=== PATIENT | female | born 1985 | race Caucasian/White ===

== ENCOUNTER 2019-08-16 09:01 | Emergency (ER) | payer OTHER, SELFPAY ==
[2019-08-16 09:24] VITALS: BP 132/88; PULSE 111; RESP 20; TEMP 37.7; O2SAT 98
--- NOTE | 2019-08-16 09:36 | ED.GENADULT ---
HPI - General Adult General Stated complaint: Flu like symptoms Time Seen by Provider: 08/16/19 09:36 Source: patient and RN notes reviewed Mode of arrival: ambulatory Limitations: no limitations History of Present Illness HPI narrative: This patient had onset of a fever last night with a maximum up to 101.4 which was brought down with Tylenol. She is also had a cough that is nonproductive. She has had a clear nasal drainage. She is not had any ear pain or drainage from the ears. She has had no rashes. There is been no nausea, no vomiting, no diarrhea. She has had no hematuria, no dysuria, no pyuria. She has not been traveling. She has had no known exposure to anyone with strep throat, mono, influenza, bronchitis, pneumonia that they are aware of. Related Data Home Medications Medication Instructions Recorded Confirmed albuterol sulfate 2 inh INHALATION QID PRN 06/27/19 06/27/19 fluticasone propion-salmeterol INHALATION 06/27/19 [Advair Diskus] Allergies Allergy/AdvReac Type Severity Reaction Status Date / Time No Known Allergies Allergy Verified 06/27/19 16:48 Review of Systems Review of Systems: Narrative: CONSTITUTIONAL: Denies fever, chills, or sweats. Noncontributory except as pertains to the past medical history and the history of present illness. EYES: Denies visual changes, redness, or discharge. ENT: Denies rhinorrhea, congestion, sore throat, or otalgia. CARDIOVASCULAR: Denies chest pain, palpitations, or edema. RESPIRATORY: Denies cough or dyspnea. GASTROINTESTINAL: Denies abdominal pain, nausea, vomiting, or diarrhea. GENITOURINARY: Denies dysuria or hematuria. SKIN: Denies rash or itching. MUSCULOSKELETAL: Denies back pain, joint pain, or myalgia. NEUROLOGIC: Denies headache, numbness, or weakness. PSYCHIATRIC: Denies anxiety or depression. [facility] Past Medical History Medical History (Updated 08/16/19 @ 10:01 by Joseph Ferro MD) Asthma Surgical History Surgical History (Updated 06/30/19 @ 20:06 by Jahaira Mesa NP) History of cholecystectomy Social History Social History (Updated 06/30/19 @ 20:07 by Jahaira Mesa NP) Smoking status: Never smoker Additional occupation/education comments: [employer] Gender identity (if verbalized by the patient): Female Comments At time of signature, I have reviewed and agree with nursing past medical, surgical, social, and family history.Please see nursing chart for further information. There is no relevant family history pertinent to the presenting complaint. Exam Narrative: Exam Narrative: GENERAL: Well-appearing, well-nourished, and in no acute distress. HEAD: Normocephalic, atraumatic. There is no palpation tenderness over the frontal, maxillary, mastoid sinus areas. EYES: PERRLA and EOMI. EARS: TM's clear bilaterally and the canals are clear. NOSE: Nares have mild nasal edema and congestion with a clear nasal drainage no purulent nasal drainage. Yet THROAT:Mucous membranes moist.Oropharynx normal without erythema or exudates. NECK: Supple. No adenopathy of the neck, supraclavicular, axillary, or inguinal areas. RESPIRATORY: No respiratory distress. Airway patent. Respirations non-labored. The lungs have mild rhonchi in upper, but not in the mid or lower lung caputo. There are no wheezes, no rales, no retractions, and no use accessory muscle respirations. Patient's not cyanotic and not dyspneic. Her pulse ox on room air is 98% and her current temperature is 37.7 ?C. HEART: Regular rate and rhythm. No murmur heard. Normal peripheral pulses. ABDOMEN: Soft, nontender, nondistended, normal active bowel sounds.No masses. No rebound or guarding, No organomegaly. There is no CVA pain. No pain McBurney's point. The patient is a negative Rico sign and negative Rovsing sign. There are no pulsatile masses no audible bruits. EXTREMITIES: No clubbing/cyanosis/ edema. Normal strength & range of motion. SKIN: Warm, dry.Normal col
== END 2019-08-16 10:32 | disposition home or self-care (01) ==
PROVIDERS: Emergency Provider Family Medicine
DX: J40 Bronchitis, not specified as acute or chronic (principal); J45.909 Unspecified asthma, uncomplicated
CPT/HCPCS: 87804; 99213; G0463

== ENCOUNTER 2020-03-30 09:29 | Emergency (ER) | payer OTHER, SELFPAY ==
[2020-03-30 09:36] VITALS: BP 113/73; PULSE 94; RESP 14; TEMP 36.6; O2SAT 100
--- NOTE | 2020-03-30 10:01 | ED.GENADULT ---
HPI - General Adult General Chief complaint: Upper Respiratory Infection Stated complaint: ASthma issues Time Seen by Provider: 03/30/20 09:50 Source: patient and RN notes reviewed Mode of arrival: ambulatory Limitations: no limitations History of Present Illness HPI narrative: Patient presents today complaining of an asthma flare. She complains of a 2-day history of cough, wheezing, and shortness of breath. Denies congestion, rhinorrhea, sore throat, ear pain, fever. She has been out of her nebulizer medication for the last couple of days. She takes weak sella 1 puff twice daily as well as her albuterol rescue inhaler, which have not been helping. She has also been taking Benadryl without much relief. MD complaint: Asthma flare Related Data Home Medications Medication Instructions Recorded Confirmed albuterol sulfate 2 inh INHALATION QID PRN 06/27/19 03/30/20 famotidine 20 mg PO DAILY 03/30/20 03/30/20 fluticasone propion-salmeterol See Rx Instructions .ROUTE .COMPLEX 03/30/20 03/30/20 [Wixela Inhub] Allergies Allergy/AdvReac Type Severity Reaction Status Date / Time No Known Allergies Allergy Verified 03/30/20 09:47 Review of Systems Review of Systems: Narrative: CONSTITUTIONAL: Denies body aches, fever, chills, or sweats. EYES: Denies visual changes, redness, or discharge. ENT: Denies rhinorrhea, congestion, sore throat, or otalgia. CARDIOVASCULAR: Denies chest pain, palpitations, or edema. RESPIRATORY: +Cough, shortness of breath, wheezing. GASTROINTESTINAL: Denies abdominal pain, nausea, vomiting, or diarrhea. GENITOURINARY: Denies dysuria or hematuria. SKIN: Denies rash, itching, or wounds. MUSCULOSKELETAL: Denies back pain, joint pain, or myalgia. NEUROLOGIC: Denies headache, numbness, tingling, or weakness. PSYCH: Denies depression or anxiety. [facility] Past Medical History Medical History (Updated 03/30/20 @ 10:05 by Veronica Navarrete, [employer], ) Asthma Surgical History Surgical History (Updated 06/30/19 @ 20:06 by Jahaira Mesa NP) History of cholecystectomy Social History Social History (Updated 12/26/19 @ 20:07 by Jahaira Mesa NP) Smoking status: Never smoker Additional occupation/education comments: [employer] Gender identity (if verbalized by the patient): Female Comments At time of signature, I have reviewed and agree with nursing past medical, surgical, social and family history unless otherwise noted. Please see nursing chart for further information. There is no relevant family history pertinent to the presenting complaint Exam Narrative: Exam Narrative: GENERAL: Well-appearing, well-nourished, and in no acute distress. HEAD: Normocephalic, atraumatic. EYES: EOMI. No redness or drainage. Conjunctivae normal. ENT: Mucous membranes pink and moist. Nares clear. No rhinorrhea. TMs normal bilaterally. Throat normal. Uvula midline. NECK: Normal AROM. Supple. No lymphadenopathy. CHEST: No respiratory distress. Clear to auscultation. HEART: Regular rate and rhythm. No murmur appreciated. Normal peripheral pulses. EXTREMITIES: Normal range of motion. No edema. SKIN: Warm, dry, no rash. Capillary refill normal. Normal skin turgor. NEURO: No focal deficits. Alert and oriented x3. Gait steady. PSYCH: Normal affect. No signs of depression or anxiety. Course Vital Signs Vital signs: Vital Signs Temperature 97.9 F 03/30/20 09:36 Pulse Rate 94 03/30/20 09:36 Respiratory Rate 14 03/30/20 09:36 Blood Pressure 113/73 03/30/20 09:36 Pulse Oximetry 100 03/30/20 09:36 Temperature 97.9 F 03/30/20 09:36 Pulse Rate 94 03/30/20 09:36 Respiratory Rate 14 03/30/20 09:36 Blood Pressure 113/73 03/30/20 09:36 Pulse Oximetry 100 03/30/20 09:36 Reviewed Medical Decision Making Differential Diagnosis Differential Diagnosis: Bronchitis, URI, asthma exacerbation Vital Signs Vital Signs: Vital Signs Temperature 97.9 F
== END 2020-03-30 10:15 | disposition home or self-care (01) ==
PROVIDERS: Emergency Provider Nurse Practitioner
DX: J45.901 Unspecified asthma with (acute) exacerbation (principal); K21.9 Gastro-esophageal reflux disease without esophagitis
CPT/HCPCS: 99213; G0463